=== PATIENT | female | born 1970 | race Asian ===

== ENCOUNTER 2025-04-09 08:03 | Outpatient (CLI) | payer OTHER ==
[~2025-04-09] VITALS: Ht 154.9 cm; Wt 80.3 kg
[2025-04-09] MEDS: REGADENOSON 0.4 MG/5 ML SYRG IV ONE ×3 (10:19→10:28)
--- NOTE | 2025-04-14 08:55 | DVHSR ---
APPROVED REPORT Exam: Nuclear Stress Test Indication: SVT/HTN/Obesity BMI: 0 Stress Test Details Stress Test: Pharmacologic stress testing performed using 0.4 mg of regadenoson per 5 mL given IV ov er 10 seconds. HR Resting HR: 54 bpmMax Heart Rate (APMHR): 168.075283 bpm Max HR Achieved: 91 bpmTarget HR (85% APMHR): 142.294950 bpm % of APMHR: 54.17 Recovery HR: 70 bpm BP Resting BP: 129/77 mmHg Recovery BP: 118/73 mmHg ECG Resting ECG: Sinus Bradycardia Clinical Reason for Termination: Completed protocol Nurse Comments Recieved pt. from [facility]. A/Ox4 on RA. Connected to faculty administrator, VS stable. Rt IV flushes well. Reviewed POC. Pt. verbalized understanding of procedure including risks and side effects, agrees for stress testing. Lexiscan stress test performed per protocol. [facility] tech administered Cardiolite. Pt. tolerated well . Pt. stable, no change on exam. VS returned to baseline. Transferred to [facility] via wheelchair w/ te ch. Stress ECG Conclusion lvef 78% normal perfusion scan no ischemia diffuse T wave inversion on infero and anterior leads on stress portion NM EXAM: Myocardial Perfusion REST/STRESS Imaging Protocol: Rest Tc-99m/Stress Tc-99m 1 day Resting Data Rest SPECT myocardial perfusion imaging was performed in supine position 65 minutes following the int ravenous injection of 11.2 mCi of Tc-99m Sestamibi. Time of rest injection: 0930 Time of rest imagin Administration Route: IV Administration Site: Right Hand Pharmacologic Stress Pharmacologic stress test was performed by injecting Regadenoson 0.4 mg IV push followed by the intra venous injection of 29.7 mCi of Tc-99m Sestamibi. Time of stress injection: 1050 Time of stress imagin Administration Route: IV Administration Site: Right Hand Gated Stress SPECT was performed 125 minutes after stress injection. The images were gated to evaluate regional wall motion and calculate left ventricular ejection fracti on. Nuclear Conclusion Nuclear Findings: negative for ischemia lvef 78% normal perfusion scan no ischemia diffuse T wave inversion on infero and anterior leads on stress portion
== END 2025-04-09 17:00 | disposition home or self-care (01) ==
LOC: XYW 08:03
PROVIDERS: ATTEND Internal Medicine Cardiovascular Disease
DX: R00.1 Bradycardia, unspecified (principal); I10 Essential (primary) hypertension; E66.9 Obesity, unspecified
CPT/HCPCS: 78452; 93017; A9500; J2785